=== PATIENT | female | born 2000 | race Caucasian/White ===

== ENCOUNTER → 2021-08-19 15:40 | Outpatient (BNVA) | payer MEDICAID, SELFPAY | PROVIDERS: Visit Provider Nurse Practitioner Family | DX: Z20.822 Contact with and (suspected) exposure to COVID-19 (principal) | CPT/HCPCS: 87635 ==

== ENCOUNTER 2022-01-21 23:18 | Inpatient (IN) | payer MEDICAID, SELFPAY ==
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
[2022-01-21 23:36] VITALS: BP 126/81; PULSE 119; RESP 22; TEMP 36.8; O2SAT 96; BMI 29.1
[2022-01-22] MEDS: nicotine 21 mg Patch 1 PATCH TRANSDERMA (00:24)
[2022-01-22] MEDS: ibuprofen 200 mg Tablet 400 MG PO (00:35)
[2022-01-22 00:39] LABS: HCG Qualitative Urine. Negative (Negative)
[2022-01-22 00:41] LABS: Basophils % 0.6 %; Eosinophils % 0.2 %; Hematocrit 39.5 % (37.0-47.0); Hemoglobin 13.6 g/dL (11.5-15.3); Lymphocytes # 1.7 10^3/uL (0.8-4.8); Mean Corpuscular HGB Conc 34.4 g/dL (30.0-36.0); Mean Corpuscular Hemoglobin 29.4 pg (28.0-34.0); Mean Corpuscular Volume 85.5 fl (81-99); Mean Platelet Volume 10.2 fL (7.4-10.4); Monocytes # 0.3 10^3/uL (0.2-0.9); Monocytes % 6.3 %; Neutrophils # 3.11 10^3/uL (1.8-7.7); Neutrophils % 59.5 %; Nucleated Red Blood Cells % 0 %; Platelet Count 303 10^3/cmm (130-400); Red Blood Count 4.62 10^6/uL (4.1-5.3); Red Cell Distribution Width 13.3 % (12.1-15.1); White Blood Count 5.2 10^3/uL (4.0-10.0)
[2022-01-22 00:58] LABS: Alanine Aminotransferase 22 U/L (0-33); Albumin Level 4.8 g/dL (3.5-5.2); Alcohol Level 148 mg/dL (0-10); Alkaline Phosphatase 83 IU/L (35-105); Anion Gap 18.9 (5-19); Aspartate Amino Transferase 19 U/L (0-32); Blood Urea Nitrogen 8 mg/dL (6-20); Calcium 9.4 mg/dL (8.5-10.5); Carbon Dioxide 23 mmol/L (22-29); Chloride 108 mmol/L (98-107); Globulin 3.5 g/dL (1.3-4.6); Glomerular Filtration Rate 103.7 mL/min (90-130); Glucose 97 mg/dL (65-115); Osmolality Calculated 300 mOsm/kg (285-295); Potassium 3.9 mmol/L (3.5-5.1); Sodium 146 mmol/L (136-145); Total Bilirubin 0.2 mg/dL (0.15-1.2); Total Protein 8.3 g/dL (6.6-8.7)
[2022-01-22 01:00] LABS: Acetaminophen < 5.0 ug/mL (10-30); Salicylate < 0.3 mg/dL (3-10)
[2022-01-22 01:14] VITALS: BP 126/87; PULSE 100; RESP 18; O2SAT 98
[2022-01-22 01:27] LABS: Amphetamines Screen Urine Negative (Negative); Barbiturates Screen Urine Negative (Negative); Benzodiazepines Screen Urine Negative (Negative); Cocaine Screen Urine Negative (Negative); Opiate Screen Urine Negative (Negative); PCP Screen Urine Negative (Negative); THC Screen Urine Positive (Negative)
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
[2022-01-22] MEDS: thiamine 100 mg Tablet PO (03:07)
[2022-01-22 11:51] VITALS: BP 127/88; PULSE 102; RESP 17; TEMP 36.6; O2SAT 98
[2022-01-22 14:00] VITALS: BP 127/88; PULSE 102; RESP 17; TEMP 36.6
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
[2022-01-22 16:53] LABS: Basophils % 0.3 %; Eosinophils % 0.2 %; Hematocrit 41.4 % (37.0-47.0); Lymphocytes # 2.3 10^3/uL (0.8-4.8); Mean Corpuscular HGB Conc 33.8 g/dL (30.0-36.0); Mean Corpuscular Hemoglobin 29.6 pg (28.0-34.0); Mean Corpuscular Volume 87.5 fl (81-99); Monocytes # 0.7 10^3/uL (0.2-0.9); Monocytes % 7.5 %; Neutrophils # 6.25 10^3/uL (1.8-7.7); Neutrophils % 66.8 %; Nucleated Red Blood Cells % 0 %; Platelet Count 303 10^3/cmm (130-400); Red Blood Count 4.73 10^6/uL (4.1-5.3); Red Cell Distribution Width 13.2 % (12.1-15.1); White Blood Count 9.4 10^3/uL (4.0-10.0)
[2022-01-22] MEDS: nicotine 2 mg Gum BUCCAL ×2 (18:32→20:52)
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
[2022-01-22 18:51] LABS: Alanine Aminotransferase 20 U/L (0-33); Aspartate Amino Transferase 20 U/L (0-32)
[2022-01-22] MEDS: trazodone 50 mg Tablet PO ×2 (19:57→21:20)
[2022-01-22 20:27] VITALS: BP 118/83; PULSE 94; RESP 18; TEMP 36.6; O2SAT 98
--- NOTE | 2022-01-22 20:33 | PC.NURSE ---
PT CAME TO NURSES STATION ASKING IF SOMEONE COULD JUST LEAVE IF THEY DO NOT HAVE A AFFIDAVIT. THIS NURSE EXPLAINED THE PROCESS TO THE PT AND SHE BECAME TEARFUL. PT STATES SHE KNOWS SHE NEEDS TO BE HERE AND WANTS TO BE HERE BUT IS A SINGLE PARENT AND NEEDS TO MAKE MONEY. PT CONTINUES THAT SHE JUST MISSES HER DAUGHTER AND WANTS TO SEE HER. THIS NURSE TALKED WITH THE PATIENT AT LENGTH ABOUT WHY SHE IS HERE AND HOW THIS WILL BENEFIT HER AND HER DAUGHTER IN THE LONG RUN. AFTER DISCUSSION PT FELT BETTER AND THIS NURSE LET HER KNOW THAT IF SHE NEEDS TO TALK AT ANY TIME TO LET NURSING STAFF KNOW. PT VERBALIZED UNDERSTANDING. PT HAS BEEN UP ON THE PHONE MULTIPLE TIMES AND IS CALMER.
--- NOTE | 2022-01-22 20:36 | PC.NURSE ---
Addendum entered by Xiomy Edwards LPN 01/22/22 21:22: PT CAME TO NURSES STATION REQUESTING AN ADDITIONAL DOSE OF TRAZADONE. TRAZADONE WAS GIVEN Original Note: PRN PT REQUESTED MEDICATION TO HELP HER SLEEP. TRAZADONE WAS GIVEN.
[2022-01-23 06:00] VITALS: BP 107/66; PULSE 62; RESP 16; TEMP 36.6; O2SAT 97
[2022-01-23] MEDS: nicotine 2 mg Gum BUCCAL ×3 (08:40→20:52)
[2022-01-23] MEDS: hyDROXYzine 25 mg Capsule 50 MG PO ×2 (08:41→11:24)
[2022-01-23] MEDS: divalproex ER 500 mg Tablet (24H) PO (10:10)
--- NOTE | 2022-01-23 11:24 | PC.NURSE ---
prn dose of hydroxyzine given per pt request due to increased anxiety while she was in group, pt instructed to tell this nurse if anxiety isnt reduced by medication, pt verb understanding
--- NOTE | 2022-01-23 11:40 | PC.NURSE ---
Patient has numerous self inflicted lacerations to right thigh. No signs of infection observed. Bacitracin ointment applied by patient.
[2022-01-23 13:53] VITALS: BP 107/66; PULSE 62; RESP 16; TEMP 36.6; O2SAT 97
--- NOTE | 2022-01-23 16:40 | W.PM.NPUPNS ---
Subjective NPU Subjective: Patient presents today reporting that she is doing better than when we spoke a couple days ago. She reports that she knows that she really needed this inpatient stay. She reports that it is tough being a single mom because she has bills to pay being in here but she also realizes that her life would be a mess if she did not do something about her addiction. She reports she is struggling between the idea of being aggressive with AA meetings or doing outpatient at [facility], but we talked about the importance of doing something. She reports that she is tolerating the Depakote well and we discussed the likelihood of discharge in the next 48 hours. Mental Status Exam MSE Comments: This is an overweight versus obese white female with appropriate grooming and eye contact.? No abnormal movements ? Cooperative with exam in no acute distress.? Speech was normal rate and volume.? Mood described as better, affect congruent.? Thought process organized.? Thought content: Patient denied suicidal or homicidal ideation and no delusions were noted or reported and she denied any auditory or visual hallucinations.? Attention and concentration were intact and memory appeared reliable but none were formally tested.? She alert and oriented x3.? Insight is fair, judgment improving and impulse control impaired. Vitals/I&O/Wt Last Vital Signs Temp 98.3 F 01/23/22 19:59 Pulse 83 01/23/22 19:59 Resp 17 01/23/22 19:59 BP 103/70 01/23/22 19:59 Pulse Ox 98 01/23/22 19:59 Data NPU : 01/22/22 16:36 01/22/22 00:30 A&P Assessment and plan (1) Alcohol use disorder, severe, dependence: Status: Acute (2) Bipolar 2 disorder: Status: Acute (3) Depression: Status: Acute Plan This is a 22-year-old white female with a long history of alcohol use and dependence and mood dysregulation who presents reporting resolving suicidality and optimism about recovery moving forward. 1. Continue current medication. Started Depakote ER 500 mg p.o. every morning. 2. Continue every 15 minute checks for safety. 3. Encourage individual, group and milieu therapies. 4. Encourage sober living treatment after discharge at the highest level of care to which he is willing to commit. Involuntary Hold Information 96 Hour Hold: 96 Hour Involuntary Admission: No Attestations NPU Medical Necessity Statement*: Inpatient hospitalization is medically necessary and the clinically appropriate intervention at this time. We will monitor medications and make changes as indicated. Likely length of stay is 1-3 days. 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
[2022-01-23 19:59] VITALS: BP 103/70; PULSE 83; RESP 17; TEMP 36.8; O2SAT 98
[2022-01-23] MEDS: trazodone 50 mg Tablet PO (20:52)
[2022-01-24 06:00] VITALS: BP 126/80; PULSE 99; RESP 16; TEMP 36.6; O2SAT 97
[2022-01-24] MEDS: nicotine 2 mg Gum BUCCAL ×3 (06:50→13:02)
[2022-01-24] MEDS: divalproex ER 500 mg Tablet (24H) PO (08:06)
[2022-01-24 13:42] VITALS: BP 119/77; PULSE 106; RESP 16; TEMP 36.8; O2SAT 98
--- NOTE | 2022-01-24 14:31 | P.NPUDS_ITS ---
Diagnoses at Discharge Discharge Diagnosis (1) Alcohol use disorder, severe, dependence: Status: Acute (2) Bipolar 2 disorder: Status: Acute (3) Depression: Status: Acute Reason for Visit Reason for Visit: SI/CUTTING LEGS Brief History: History of Present Illness Claudine Roca is a 22 year old female who presented to the emergency department the following report: Chief Complaint: Psychiatric Symptoms Stated Complaint: SI/CUTTING LEGS Time Seen by Provider: 01/21/22 23:19 Source: patient and EMS Mode of arrival: EMS Limitations: no limitations History of Present Illness:?? 22-year-old female who has history of alcoholism states that she did drink heavily she was drinking tonight she got in a fight with her mom and her sister and it made her upset she cut her left leg.? States she does this regularly as a release she does have very superficial abrasions not really even lacerations.? States that she does feel depressed she states she is unsure if she is suicidal at this time she is quite intoxicated. Associated symptoms: Reports depression. She presented to the emergency department with some question of whether or not this represented alcohol driven statements or whether she was having stephon suicidality.? Psychiatric consult was requested to assist in this decision making.? Patient presents today reporting that she has a significant history of drinking over the past few years and that she has tried some level to convince herself that she does not have a problem with she presents today with knowledge that she does.? As stated above she did have a conflict with her mother but she is identifying that the situation is a reflection of her depression and mood instability and unhappiness with her life as it currently is which is what has led to her having the suicidal thoughts.? She understood that her blood alcohol was 148 but believes she will still feel a great deal of what she is experiencing once the alcohol is gone.? She endorsed that she really needs help and she is hopeful to get this right for herself and her daughter. Hospital Course Hospital Course She quickly acclimated to the individual, group and milieu therapies provided. She was started on Depakote ER 500 mg p.o. daily with notable improvement. She worked with the social work team to find sober living treatment options but also had a challenge of being a single mother and needing to make sure the bills paid. She was able to contract for safety outside the hospital prior to discharge. During the hospitalization, patient had routine laboratory studies which were within normal limits except for few outliers. Additionally there was a general medical evaluation which was also within normal limits and revealed no new acute processes. Discharge Summary: At the time of discharge, she denied psychosis or lethality. Mood and anxiety were well managed. Patient endorsed a plan to avoid all drugs of abuse and follow-up with the aftercare recommendations of the treatment team. Patient was evaluated and deemed to be absent credible lethality, and had achieved the maximum benefit from an inpatient hospitalization, so was discharged. Involuntary Hold Information 96 Hour Hold: 96 Hour Involuntary Admission: No Mental Status Exam MSE Comments: This is an overweight versus obese white female with limited grooming and eye contact.? No abnormal movements except for mild psychomotor retardation.? Notable for cuts on her legs.? Cooperative with exam in mild to moderate distress.? Speech was normal rate and volume.? Mood described as much better, affect congruent.? Thought process organized.? Thought content: Patient denied suicidal or homicidal ideation and no delusions were reported or noted, she denied any auditory visual hallucinations.? Attention and concentration were intact and memory appeared reliable but none were formally tested.? She alert and oriented x3.? Insight is fair, judgment limited impulse control limited but improving. Discharge Data Studies Completed and Pending: Laboratory Results WBC 9.4 10^3/uL (4.0- 10.0) 01/22/22 16:36 RBC 4.73 10^6/uL (4.1 -5.3) 01/22/22 16:36 Hgb 14.0 g/dL (11.5-1 5.3) 01/22/22 16:36 Hct 41.4 % (37.0-47.0 ) 01/22/22 16:36 MCV 87.5 fl (81-99) 01/22/22 16:36 MCH 29.6 pg (28.0-34. 0) 01/22/22 16:36 MCHC 33.8 g/dL (30.0-3 6.0) 01/22/22 16:36 RDW 13.2 % (12.1-15.1 ) 01/22/22 16:36 Plt Count 303 10^3/cmm (130 -400) 01/22/22 16:36 MPV 10.0 fL (7.4-10.4 ) 01/22/22 16:36 Neut % (Auto) 66.8 % 01/22/22 16:36 Lymph % (Auto) 25.0 % 01/22/22 16:36 [place] % (Auto) 7.5 % 01/22/22 16:36 Eos % (Auto) 0.2 % 01/22/22 16:36 Baso % (Auto) 0.3 % 01/22/22 16:36 Neut # (Auto) 6.25 10^3/uL (1.8 -7.7) 01/22/22 16:36 Lymph # (Auto) 2.3 10^3/uL (0.8- 4.8) 01/22/22 16:36 [place] # (Auto) 0.7 10^3/uL (0.2- 0.9) 01/22/22 16:36 Eos # (Auto) 0.0 10^3/uL (0.0- 0.8) 01/22/22 16:36 Baso # (Auto) 0.0 10^3/uL (0.0- 0.1) 01/22/22 16:36 Nucleated RBC % (a uto) 0 % 01/22/22 16:36 Nucleated RBCs # 0.0 /100WBC 01/22/22 16:36 Sodium 146 mmol/L (136-1 45) H 01/22/22 00:30 Potassium 3.9 mmol/L (3.5-5 .1) 01/22/22 00:30 Chloride 108 mmol/L (98-10 7) H 01/22/22 00:30 Carbon Dioxide 23 mmol/L (22-29) 01/22/22 00:30 Anion Gap 18.9 (5-19) 01/22/22 00:30 BUN 8 mg/dL (6-20) 01/22/22 00:30 Creatinine 0.7 mg/dL (0.5-0. 9) 01/22/22 00:30 GFR Calculation 103.7 mL/min (90- 130) 01/22/22 00:30 Glucose 97 mg/dL (65-115) 01/22/22 00:30 Calculated Osmolal ity 300 mOsm/kg (285- 295) H 01/22/22 00:30 Calcium 9.4 mg/dL (8.5-10 .5) 01/22/22 00:30 Total Bilirubin 0.2 mg/dL (0.15-1 .2) 01/22/22 00:30 AST 20 U/L (0-32) 01/22/22 16:25 ALT 20 U/L (0-33) 01/22/22 16:25 Alkaline Phosphata se 83 IU/L (35-105) 01/22/22 00:30 Total Protein 8.3 g/dL (6.6-8.7 ) 01/22/22 00:30 Albumin 4.8 g/dL (3.5-5.2 ) 01/22/22 00:30 Globulin 3.5 g/dL (1.3-4.6 ) 01/22/22 00:30 HCG, Qual Negative (Negati ve) 01/22/22 00:30 Salicylates < 0.3 mg/dL (3-10 ) L 01/22/22 00:30 Urine Opiates Scre en Negative ng/mL (N egative) 01/22/22 00:30 Acetaminophen < 5.0 ug/mL (10-3 0) L 01/22/22 00:30 Ur Barbiturates Sc reen Negative ng/mL (N egative) 01/22/22 00:30 Ur Phencyclidine S crn Negative ng/mL (N egative) 01/22/22 00:30 Ur Amphetamines Sc reen Negative ng/mL (N egative) 01/22/22 00:30 U Benzodiazepines Scrn Negative ng/mL (N egative) 01/22/22 00:30 Urine Cocaine Scre en Negative ng/mL (N egative) 01/22/22 00:30 U Marijuana (THC) Screen Positive ng/mL (N egative) H 01/22/22 00:30 Ethyl Alcohol 148 mg/dL (0-10) H 01/22/22 00:30 Vitals: Last Vital Signs Temp 98.2 F 01/24/22 13:42 Pulse 106 H 01/24/22 13:42 Resp 16 01/24/22 13:42 BP 119/77 01/24/22 13:42 Pulse Ox 98 01/24/22 13:42 Discharge Plan Discharge Patient Disposition: Home Condition: Stable Prescriptions: New trazodone 50 mg Tablet 50 mg PO BEDTIME PRN (Reason: Sleep) 30 Days Qty: 30 1RF divalproex 500 mg Tablet Extended Release 24 Hr 500 mg PO DAILY 30 Days Qty: 30 1RF Discharge Orders: Discharge Order (Routine); Ordered 01/24/22 Ordered By: Ron Carter Referrals: AA Meeting: [facility] [Other] (Thursday 6:30 pm - 7:30 pm Open Meeting, Women) [facility] [Outside] - 01/28/22 1:45 pm (Initial assessment with Nabor Woodson) [facility] [Outside] Discharge Diet: Regular Discharge Activity: Resume usual activity Patient Instructions: Alcohol Abuse, Bipolar Disorder (DC), Depression (DC), Opioid Safety Discharge Attestations NPU Time Spent in Discharge Care*: less than 30 min Specific Discharge Activities: Specific discharge activities: educating patient, discussing with case packer and sealer/social workers/dc planners, documenting/other paperwork and evaluating patient/reviewing data Coding Level of Care Code Acute Chg FW DC note Diagnoses Alcohol use disorder, severe, dependence F10.20 Bipolar 2 disorder F31.81 Depression F32.A
[2022-01-24 14:48] VITALS: BP 119/77; PULSE 106; RESP 16; TEMP 36.8; O2SAT 98
== END 2022-01-24 15:45 | disposition home or self-care (01) | DRG 885 ==
LOC: ER 01-22 02:51 → NP 01-22 13:49
PROVIDERS: Admitting Provider Psychiatry & Neurology Psychiatry; Emergency Provider Emergency Medicine; Visit Provider Psychiatry & Neurology Psychiatry
DX: F31.81 Bipolar II disorder (principal); F10.229 Alcohol dependence with intoxication, unspecified; Y90.6 Blood alcohol level of 120-199 mg/100 ml; F17.200 Nicotine dependence, unspecified, uncomplicated; Z91.52 Personal history of nonsuicidal self-harm; Z91.51 Personal history of suicidal behavior; Z62.810 Personal history of physical and sexual abuse in childhood; Z62.811 Personal history of psychological abuse in childhood; Z81.8 Family history of other mental and behavioral disorders
CPT/HCPCS: 36415; 80053; 80306; 80307; 81025; 84450; 84460; 85025; 97150; 97165; 99285

== ENCOUNTER → 2022-03-18 10:51 | Outpatient (BNVA) | payer MEDICAID, SELFPAY | PROVIDERS: Visit Provider Nurse Practitioner Family | DX: J02.9 Acute pharyngitis, unspecified (principal); Z20.822 Contact with and (suspected) exposure to COVID-19; U07.1 COVID-19 | CPT/HCPCS: 87071; 87426; 87880 ==

== ENCOUNTER → 2022-07-31 12:00 | Outpatient (BNVA) | payer MEDICAID, SELFPAY | PROVIDERS: Visit Provider Nurse Practitioner Women's Health | DX: Z11.3 Encounter for screening for infections with a predominantly sexual mode of transmission (principal) | CPT/HCPCS: 86592; 86803; 87340; 87491; 87591; 87661; 87806 ==

== ENCOUNTER → 2022-08-22 10:15 | Outpatient (BNVA) | payer MEDICAID, SELFPAY | PROVIDERS: Visit Provider Nurse Practitioner Family | DX: J02.9 Acute pharyngitis, unspecified (principal); N92.6 Irregular menstruation, unspecified; J03.00 Acute streptococcal tonsillitis, unspecified; R11.2 Nausea with vomiting, unspecified | CPT/HCPCS: 81025; 87880 ==

== ENCOUNTER → 2022-09-16 10:00 | Outpatient (BNVA) | payer MEDICAID, SELFPAY | PROVIDERS: Visit Provider Nurse Practitioner Women's Health | DX: Z01.419 Encounter for gynecological examination (general) (routine) without abnormal findings (principal); R21 Rash and other nonspecific skin eruption | CPT/HCPCS: 86695; 86696; 88175 ==

== ENCOUNTER → 2022-10-09 09:33 | Outpatient (BNVA) | payer MEDICAID, SELFPAY | PROVIDERS: Visit Provider Nurse Practitioner Women's Health | DX: N92.6 Irregular menstruation, unspecified (principal); A60.00 Herpesviral infection of urogenital system, unspecified; N89.8 Other specified noninflammatory disorders of vagina; R10.2 Pelvic and perineal pain | CPT/HCPCS: 81025 ==

== ENCOUNTER → 2022-11-10 15:03 | Outpatient (BNVA) | payer MEDICAID, SELFPAY | PROVIDERS: Visit Provider Family Medicine | DX: Z02.89 Encounter for other administrative examinations (principal) | CPT/HCPCS: 86580 ==

== ENCOUNTER → 2023-02-09 13:46 | Outpatient (BNVA) | payer MEDICAID, SELFPAY | PROVIDERS: Visit Provider Nurse Practitioner Psychiatric/Mental Health | DX: Z03.89 Encounter for observation for other suspected diseases and conditions ruled out (principal); F31.81 Bipolar II disorder; F10.90 Alcohol use, unspecified, uncomplicated; F12.20 Cannabis dependence, uncomplicated | CPT/HCPCS: 81025 ==

== ENCOUNTER → 2023-09-25 16:10 | Outpatient (BNVA) | payer MEDICAID, SELFPAY | PROVIDERS: Visit Provider Nurse Practitioner Women's Health | DX: Z20.2 Contact with and (suspected) exposure to infections with a predominantly sexual mode of transmission (principal); N76.0 Acute vaginitis | CPT/HCPCS: 86592; 86803; 87340; 87491; 87591; 87806 ==

== ENCOUNTER → 2024-03-09 16:32 | Outpatient (BNVA) | payer MEDICAID, SELFPAY | PROVIDERS: Visit Provider Nurse Practitioner Family | DX: N89.8 Other specified noninflammatory disorders of vagina (principal) | CPT/HCPCS: 87491; 87591; 87661 ==